=== PATIENT | female | born 1965 | race Two or more races ===

== ENCOUNTER 2019-08-14 13:01 | Emergency (ER) | payer OTHER ==
[~2019-08-14] VITALS: Ht 154.9 cm; Wt 79.4 kg
[2019-08-14] MEDS ORDERED: SYNTHROID75 MCG PO (13:37)
[2019-08-14] MEDS ORDERED: LIPITOR20 MG PO (13:38)
[2019-08-14] MEDS ORDERED: GLUMETZA500 MG PO (13:39)
== END 2019-08-14 18:49 | disposition home or self-care (01) ==
LOC: ER 13:01
DX: N20.1 Calculus of ureter (principal)

== ENCOUNTER 2020-02-21 09:41 | Emergency (ER) | payer OTHER ==
[~2020-02-21] VITALS: Ht 154.9 cm; Wt 79.4 kg
[~2020-02-21 09:41] MED LIST: GLUMETZA500 MG PO; LIPITOR20 MG PO; SYNTHROID75 MCG PO
[2020-02-21] MEDS ORDERED: LOTREL 5-10 MG1 CAP (09:48)
[2020-02-21] MEDS ORDERED: KETO10TA2 PO (15:23)
[2020-02-21] MEDS ORDERED: ORPHENADRINE C100 MG PO (15:23)
== END 2020-02-21 16:06 | disposition home or self-care (01) ==
LOC: ER 09:41
DX: R10.32 Left lower quadrant pain (principal); M54.5 Low back pain